=== PATIENT | male | born 1990 | race Caucasian/White ===

== ENCOUNTER 2018-03-22 06:33 | Day surgery (SDC) | payer BC, OTHER ==
[2018-03-19 10:04] VITALS: BP 133/80
[~2018-03-22] VITALS: Ht 175.3 cm; Wt 89.0 kg
[~2018-03-22 06:33] MED LIST: None at this Time
[2018-03-22] MEDS ORDERED: MIDAZOLAM 1 MG/ML, 2ML ONE (07:41)
[2018-03-22] MEDS ORDERED: FENTANYL PF 250 MCG/5ML ONE (07:41)
[2018-03-22] MEDS: SCOPOLAMINE PATCH, 1.5MG PATCH.TD72 TD ONE (08:05)
[2018-03-22] MEDS: GABAPENTIN 300 MG CAPSULE PO ONE (08:05)
[2018-03-22] MEDS: ACETAMINOPHEN 500 MG TABLET PO ONE (08:05)
[2018-03-22] MEDS: OxyconTIN ER 20 MG TAB.ER PO ONE (08:05)
[2018-03-22] MEDS: LACTATED RINGERS 1,000 ML IV SCH (08:05)
[2018-03-22] MEDS: LIDOCAINE/PF 1%, 30ML ONE (08:27)
[2018-03-22] MEDS: EPINEPHRINE 1 MG/ML, 1ML ONE (08:28)
[2018-03-22] MEDS: BUPIVACAINE/PF 0.5% INFIL ONE (08:28)
[2018-03-22] MEDS ORDERED: FENTANYL PF 100 MCG/2ML IV PRN (09:00)
[2018-03-22] MEDS ORDERED: PROMETHAZINE 25 MG/ML, 1ML IV PRN (09:00)
[2018-03-22] MEDS ORDERED: LABETALOL 5MG/ML, 20ML IV PRN (09:00)
[2018-03-22] MEDS ORDERED: LORazepam 2 MG/ML, 1ML IVPush PRN (09:00)
[2018-03-22] MEDS ORDERED: MEPERIDINE/PF 25MG/0.5ML IVPush PRN (09:00)
[2018-03-22] MEDS ORDERED: hydrALAzine 20 MG/ML, 1ML IV PRN (09:00)
[2018-03-22] MEDS ORDERED: HYDROmorphone 1 MG/ML, 1ML IV PRN (09:00)
[2018-03-22] MEDS ORDERED: PROMETHAZINE 25 MG SUPP PR PRN (09:00)
[2018-03-22] MEDS ORDERED: ALBUTEROL SULFATE 2.5 MG/3 ML NPPB PRN (09:00)
[2018-03-22] MEDS ORDERED: MEPERIDINE/PF 50 MG/ML ONE (09:30)
[2018-03-22] MEDS ORDERED: OXYcodone 5 MG/5 ML ORAL.SOL UDC ONE (09:53)
[2018-03-22] MEDS: OXYcodone 5 MG/5 ML ORAL.SOL UDC PO PRN (09:55)
[2018-03-22] MEDS ORDERED: CEFAZOLIN 1,000 MG ONE (10:43)
[2018-03-22] MEDS ORDERED: PROPOFOL 10 MG/ML, 20ML ONE (10:43)
[2018-03-22] MEDS ORDERED: ONDANSETRON 2MG/ML, 2ML ONE (10:43)
[2018-03-22] MEDS ORDERED: DEXAMETHASONE 4 MG/ML, 1ML ONE (10:43)
== END 2018-03-22 12:25 ==
LOC: OUT 06:33
PROVIDERS: ATTEND Orthopaedic Surgery
DX: S83.512A Sprain of anterior cruciate ligament of left knee, initial encounter (principal); S83.212A Bucket-handle tear of medial meniscus, current injury, left knee, initial encounter; M65.862 Other synovitis and tenosynovitis, left lower leg; J45.909 Unspecified asthma, uncomplicated; X58.XXXA Exposure to other specified factors, initial encounter; Y93.89 Activity, other specified; Y92.89 Other specified places as the place of occurrence of the external cause; Y99.8 Other external cause status; Z72.89 Other problems related to lifestyle
CPT/HCPCS: 29881; 29888; C1713; J0171; J0690; J1100; J2175; J2250; J2405; J2704; J3010; J3490; J7120